=== PATIENT | male | born 1985 | race Caucasian/White ===

== ENCOUNTER → 2022-12-29 | Outpatient (CLI) | payer OTHER | LOC: M RAD 07:01 | PROVIDERS: ATTEND Physician Assistant | DX: M79.602 Pain in left arm (principal) ==

== ENCOUNTER → 2023-05-20 | Outpatient (CLI) | payer OTHER | LOC: M SOG 08:08 | PROVIDERS: ATTEND Physician Assistant | DX: M79.632 Pain in left forearm (principal) ==

== ENCOUNTER → 2023-06-05 | Outpatient (CLI) | payer OTHER | LOC: M RAD 10:03 | PROVIDERS: ATTEND Physician Assistant | DX: M79.632 Pain in left forearm (principal); R22.32 Localized swelling, mass and lump, left upper limb ==